=== PATIENT | male | born 1930 | race Caucasian/White ===

== ENCOUNTER 2017-05-27 13:04 | Outpatient (CLI) | payer MEDICARE ==
--- NOTE | 2017-05-27 15:38 | CT ---
HEAD CT WITHOUT CONTRAST: Date: 05-27-17 Comparison: [facility], 03-25-17 History: 87-year-old male status post head trauma. Assess for intracranial hemorrhage. Subdural hematoma seen on prior imaging. Technique: Serial axial CT imaging was obtained at 4.5 mm intervals from skull base through vertex without contr ast. FINDINGS: Calvarial risa holes are noted near the vertex in the left frontal region. The imaged paranasal sinus es/mastoid air cells are well aerated. There is atherosclerotic calcification of the cavernous carotid arteries in the distal vertebral roxie keyana. There is no displaced calvarial fracture. There is a very small extraaxial isodense fluid collecting measuring up to 5 mm in greatest transvers e dimension, left frontal region, representing minimal residual subdural hematoma, markedly decreased since the prior exam. There may be a minimal degree of residual subdural blood medially in the left frontal region on axial image 23 measuring 5 mm in greatest transverse dimension. The midline shift from left to right seen on the prior examination has resolved. There is no intraaxi al hemorrhage seen. IMPRESSION: Minimal residual left sided subdural hematoma, markedly decreased in size since the prior exam. Inter isma resolution and previously noted left to right midline shift. POS: [facility]
== END 2017-05-27 13:05 | disposition home or self-care (01) ==
LOC: TBSIIMAG 13:04
PROVIDERS: ATTEND Neurological Surgery
DX: I62.03 Nontraumatic chronic subdural hemorrhage (principal)
CPT/HCPCS: 70450